=== PATIENT | male | born 1990 | race African-American/Black ===

== ENCOUNTER 2022-10-10 02:01 | Emergency (ER) | payer OTHER ==
[~2022-10-10] VITALS: Ht 167.6 cm; Wt 79.5 kg
[2022-10-10 02:02] VITALS: BP 155/95; PULSE 115; RESP 20; TEMP 98.4
[2022-10-10] MEDS ORDERED: IBUPROFEN 600 MG TABLET PO ONE (02:45)
== END 2022-10-10 04:24 | disposition home or self-care (01) ==
LOC: EMS 02:02
DX: S62.304A Unspecified fracture of fourth metacarpal bone, right hand, initial encounter for closed fracture (principal); X58.XXXA Exposure to other specified factors, initial encounter; Y93.89 Activity, other specified; Y92.89 Other specified places as the place of occurrence of the external cause; Y99.8 Other external cause status
CPT/HCPCS: 99283